=== PATIENT | male | born 1965 | race Caucasian/White ===

== ENCOUNTER → 2020-09-10 | Outpatient (CLI) | payer BC | LOC: COL.RAD 12:31 | DX: M54.16 Radiculopathy, lumbar region (principal); M71.38 Other bursal cyst, other site ==

== ENCOUNTER 2022-01-16 08:41 | Day surgery (SDC) | payer BC ==
[2022-01-16] VITALS (106 sets, daily range): BP systolic 107–139; BP diastolic 69–97; PULSE 72–82; TEMP 98.1; O2SAT 63–99
[~2022-01-16] VITALS: Ht 188 cm; Wt 128.1 kg
[2022-01-16] MEDS ORDERED: ASPIRIN E.C. 8181 MG PO (09:39)
[2022-01-16] MEDS ORDERED: LIPITOR20 MG PO (09:39)
[2022-01-16] MEDS ORDERED: PRINIVIL10 MG PO (09:40)
[2022-01-16 10:16] LABS: HEMATOCRIT 41.9 % (42.0-52.0); HEMOGLOBIN 14.3 g/dl (13.5-18.0); MEAN CELL VOLUME 85 fl (80.0-100.0); MEAN CORPUSCULAR HEMOGLOBIN 29 pg (27-31); MEAN CORPUSCULAR HGB CONC 34 g/dl (33.0-37.0); MEAN PLATELET VOLUME 10.4 fl (7.4-10.4); PLATELET COUNT 250 K/mm3 (130-400); RED BLOOD COUNT 4.91 M/mm3 (4.20-5.60); REDCELL DISTRIBUTION WIDTH-CV 13.1 % (11.5-14.5)
[2022-01-16 10:30] LABS: CALCIUM 9.7 mg/dL (8.4-10.2); CREATININE, serum 1.06 mg/dL (0.72-1.25); POTASSIUM 4.1 mmol/L (3.5-4.5)
[2022-01-16 10:32] LABS: PROTHROMBIN TIME 11.9 SECONDS (9.7-12.8)
[2022-01-16 10:35] LABS: PARTIAL THROMBOPLASTIN TIME 32.8 SECONDS (26.0-37.0)
--- NOTE | 2022-01-16 12:46 | NUR ---
SEE MERGE DOCUMENTATION FOR MEDICATION ADMINISTRATION AND INTRA/POST PROCEDURE SEDATION ASSESSMENTS.
--- NOTE | 2022-01-16 13:45 | NUR ---
Pt back to [facility] after left heart cath. Pt is awake and alert, pwd, sr on monitor, tele initiated. TR band to rt wrist, cms intact distal. I discussed poc with pt and . no concerns at this time. Lunch ordered. polysomnography technician has been called as new order for ECHO was received after heart cath. wctm. call light in reach.
[2022-01-16] MEDS ORDERED: NORVASC 5MG5 MG/TAB PO (15:22)
--- NOTE | 2022-01-16 16:45 | NUR ---
Pt did well during his recovery. TR band has been deflated with no problem. Site dressed with bandaid, folded 2x2 and coban. cms remains intact distal. Pt is up and amb in room with steady gait, no dizziness. I have reviewed dc/rx and fu instructions with pt and his . NO concerns or questions at time of departure. pt escorted to exit via wheelchair.
[2022-01-17] VITALS (87 sets, daily range): O2SAT 66–100
[2022-01-18 10:08] VITALS: O2SAT 58
== END 2022-01-16 18:45 | disposition home or self-care (01) ==
LOC: COL.CAR 08:41
PROVIDERS: Internal Medicine Cardiovascular Disease
DX: R94.39 Abnormal result of other cardiovascular function study (principal); R06.02 Shortness of breath; R06.00 Dyspnea, unspecified; R07.9 Chest pain, unspecified; I34.0 Nonrheumatic mitral (valve) insufficiency; I44.7 Left bundle-branch block, unspecified
CPT/HCPCS: C1769; J1644; J2250; J3010; Q9967

== ENCOUNTER → 2023-11-07 | Outpatient (CLI) | payer BC ==
[~2023-11-07] MED LIST: ASPIRIN E.C. 8181 MG PO; LIPITOR20 MG PO; NORVASC 5MG5 MG/TAB PO; PRINIVIL10 MG PO
== END ==
LOC: COL.RAD 07:56
DX: M47.26 Other spondylosis with radiculopathy, lumbar region (principal)

== ENCOUNTER → 2023-12-18 | Outpatient (CLI) | payer BC | LOC: MHCPAIN 08:25 | DX: M47.26 Other spondylosis with radiculopathy, lumbar region (principal); M54.50 Low back pain, unspecified; M48.061 Spinal stenosis, lumbar region without neurogenic claudication; I10 Essential (primary) hypertension; E78.5 Hyperlipidemia, unspecified | CPT/HCPCS: G0463 ==

== ENCOUNTER → 2024-01-10 | Outpatient (CLI) | payer BC ==
[~2024-01-10] MED LIST changes: +Iohexol 300 - 10 ML VIAL ONE; +Lidocaine PF 2% (20 MG/ML) 2 ML VIAL ONE
== END ==
LOC: MHCPAIN 11:35
DX: M54.16 Radiculopathy, lumbar region (principal)
CPT/HCPCS: J1100; Q9967

== ENCOUNTER → 2024-01-29 | Outpatient (CLI) | payer BC ==
[~2024-01-29] MED LIST changes: -Iohexol 300 - 10 ML VIAL ONE; -Lidocaine PF 2% (20 MG/ML) 2 ML VIAL ONE
== END ==
LOC: MHCPAIN 08:06
DX: M47.816 Spondylosis without myelopathy or radiculopathy, lumbar region (principal); M48.061 Spinal stenosis, lumbar region without neurogenic claudication; M54.50 Low back pain, unspecified; I10 Essential (primary) hypertension; E78.5 Hyperlipidemia, unspecified
CPT/HCPCS: G0463